=== PATIENT | male | born 1940 ===

== ENCOUNTER 2020-10-12 17:04 | Emergency (ER) | payer MEDICARE, MEDICAID ==
[~2020-10-12] VITALS: Ht 177.8 cm; Wt 65.0 kg
[~2020-10-12 17:04] MED LIST: ACET325T26 PO; AMLO-150 PO; FOLI-17 PO; Gabapentin PO; QUET25TA7 PO; TAMS-11 PO; THIA100T67 PO; VANC125C11 PO
[2020-10-12] MEDS ORDERED: PLEASE ENTER HEIGHT AND WEIGHT MC SCH (18:00)
[2020-10-12] MEDS ORDERED: SODIUM CHLORIDE 0.9% 1,000 ML IV ONE (18:00)
[2020-10-12] MEDS ORDERED: SODIUM CHLORIDE 0.9% 1,000ML IVBOLUS ONE (18:00)
[2020-10-12] MEDS ORDERED: SODIUM CHLORIDE FLUSH 10ML SYR IVF ONE (18:00)
[2020-10-12 18:47] LABS: BASOPHILS % (AUTO) 1 % (0-1); EOSINOPHILS % (AUTO) 1 % (1-7); LYMPHOCYTES % (AUTO) 18 % (22-44); MEAN CORPUSCULAR HEMOGLOBIN 33.4 pg (27.5-34.5); MEAN CORPUSCULAR HGB CONC 33.2 g/dL (33.2-36.2); MEAN PLATELET VOLUME 7.6 fL (7.4-10.4); MONOCYTES % (AUTO) 12 % (2-9); NEUTROPHILS % (AUTO) 67 % (42-75); PLATELET COUNT 161 x10^3/uL (130-400); RED BLOOD COUNT 4.16 x10^6/uL (4.38-5.82); RED CELL DISTRIBUTION WIDTH 13.8 % (9.4-14.8)
[2020-10-12 18:59] LABS: ALANINE AMINOTRANSFERASE 12 U/L (12-78); ALBUMIN 3.3 g/dL (3.4-5.0); ANION GAP 20 mmol/L (5-15); CALCIUM 9.2 mg/dL (8.5-10.1); CHLORIDE 98 mmol/L (98-107)
--- NOTE | 2020-10-12 19:00 | NUR ---
Report from JACKIE Lee. This RN to assume care. Established IV and admin fluids per mar. Patient eating at this time. No complaints or other needs.
--- NOTE | 2020-10-12 19:00 | NUR ---
REPORT TO JOHNNY MEJIA
[2020-10-12 19:03] LABS: ALKALINE PHOSPHATASE 72 U/L (45-117); BILIRUBIN,TOTAL 0.9 mg/dL (0.2-1.0); TOTAL PROTEIN 7.9 g/dL (6.4-8.2); TROPONIN I < 0.015 ng/mL (0.000-0.045)
[2020-10-12 19:05] LABS: MD NO
[2020-10-12] MEDS ORDERED: POTASSIUM CHLORIDE 20 MEQ TAB.ER.PRT PO ONE (20:30)
[2020-10-12] MEDS ORDERED: POTASSIUM CHLORIDE 20 MEQ TAB.ER.PRT ONE (20:38)
[2020-10-12 20:42] VITALS: BP 122/79
--- NOTE | 2020-10-12 20:59 | NUR ---
Road test; patient walkd with walker without assistance or difficulty. Patient states, "I feel better. I think I needed to eat. I'm ready to go home." ZACK Martines agrees. Patient to be d/c.
--- NOTE | 2020-10-12 21:38 | NUR ---
D/c instructions given. All questions and concerns addressed. Patient ambulatory with a steady gait. Belongings with patient.
== END 2020-10-12 21:41 | disposition home or self-care (01) ==
LOC: ED 21:40
DX: R53.1 Weakness (principal); E87.6 Hypokalemia; R62.7 Adult failure to thrive; F17.210 Nicotine dependence, cigarettes, uncomplicated; E11.9 Type 2 diabetes mellitus without complications; Z85.46 Personal history of malignant neoplasm of prostate; R51.9 Headache, unspecified; R06.89 Other abnormalities of breathing
CPT/HCPCS: 70450; 71045; 80053; 80307; 82140; 82962; 83605; 84484; 85025; 93005; 96360; 96361; 99285; 99406; J7030